=== PATIENT | male | born 1990 | race Caucasian/White ===

== ENCOUNTER 2022-01-02 02:53 | Emergency (ER) | payer BC ==
[~2022-01-02] VITALS: Ht 195.6 cm; Wt 129.3 kg
--- NOTE | 2022-01-02 03:19 | NUR ---
Dr. Pickard at bedside for MSE
--- NOTE | 2022-01-02 03:25 | NUR ---
Pt resting in bed, no distress noted at this time. Able to make needs known
--- NOTE | 2022-01-02 03:36 | NUR ---
Pt taken to CT
[2022-01-02 03:58] LABS: HEMATOCRIT 43.2 % (36.7-47.1); MEAN CORPUSCULAR HEMOGLOBIN 29.7 uug (23.8-33.4); MEAN CORPUSCULAR VOLUME 84.3 fL (73.0-96.2); PLATELET COUNT (AUTO) 182 K/uL (152-348)
[2022-01-02 04:05] LABS: CREATININE 1.5 mg/dL (0.6-1.3); POTASSIUM 3.8 mmol/L (3.5-5.1)
[2022-01-02 04:05] LABS: *BILIRUBIN,URIN NEGATIVE (NEGATIVE); *BLOOD, URINE 3+ (NEGATIVE); *CLARITY,URINE CLEAR (CLEAR); *COLOR,URINE YELLOW (YELLOW); *KETONES,URINE TRACE (NEGATIVE); *UROBILINOGEN,URINE 0.2 E.U./dl (NORMAL); LEUKOCYTE ESTERASE ,URINE NEGATIVE (NEGATIVE); NITRITE, URINE NEGATIVE (NEGATIVE); UGLUCOSE NEGATIVE (NEGATIVE)
[2022-01-02 04:10] LABS: BILIRUBIN,DIRECT 0.1 mg/dL (0.0-0.2); BILIRUBIN,TOTAL 0.4 mg/dL (0.2-1.0); TOTAL PROTEIN, SERUM 7.3 g/dL (6.4-8.2)
[2022-01-02 04:16] LABS: BACTERIA,URINE NONE SEEN /HPF (NONE SEEN); RBC,URINE 50-80 /HPF (0-3); SQUAMOUS EPITHELIAL CELL,UR FEW /HPF (NONE SEEN); WBC,URINE 0-3 /HPF (0-3)
[2022-01-02] MEDS ORDERED: IBUP-1955 PO (04:47)
[2022-01-02] MEDS ORDERED: ONDA4TAB5 PO (04:47)
--- NOTE | 2022-01-02 05:47 | NUR ---
Patient discharged to home in stable condition. Written and verbal after care instructions given. Patient verbalizes understanding of instructions. Able to ambulate without assistace. No distress noted. Able to make all needs known. All extremities WNL. Stressed follow up or return to ER for worsening s/s.
[2022-01-02 05:48] VITALS: BP 120/68
== END 2022-01-02 05:49 | disposition home or self-care (01) ==
LOC: ER 02:53
DX: N23 Unspecified renal colic (principal); R31.29 Other microscopic hematuria; F17.290 Nicotine dependence, other tobacco product, uncomplicated; Z84.1 Family history of disorders of kidney and ureter
CPT/HCPCS: 36415; 83690; 85025; A4663